=== PATIENT | male | born 1995 | race Caucasian/White ===

== ENCOUNTER 2018-04-26 12:52 | Emergency (ER) | payer OTHER, SELFPAY ==
[2018-04-26 12:58] VITALS: BP 120/75; PULSE 90; RESP 20; TEMP 37.2; O2SAT 99
--- NOTE | 2018-04-26 13:26 | ED.SKABFB ---
HPI - Skin/Abscess/Foreign Bdy <ORALIA Murillo - Last Filed: 04/26/18 21:56> General Chief complaint: Skin/Abscess/Foreign Body Stated complaint: Cyst, on top tailbone area Time Seen by Provider: 04/26/18 12:57 Source: patient Mode of arrival: ambulatory Limitations: no limitations History of Present Illness HPI narrative: 22-year-old healthy male that is a nonsmoker here for complaint of having abscess to his buttocks area. Has history of having pilonidal cyst and abscess in the past. He states over the past few days he has had pain into the area and today it started draining. No fevers or chills. No trauma to the area. He has not been able to see his primary care provider for this as of yet. He has a history of having a cyst surgically removed. He states that he recently just came back. No other concerns or complaints. He does report increased pain with sitting. Related Data Previous Rx's Medication Instructions Recorded clindamycin HCl 300 mg PO QID #28 cap 04/26/18 hydrocodone-acetaminophen [[place]] 1 tab PO Q6H PRN #6 tab 04/26/18 hydrocodone-acetaminophen 1 tab PO Q4-6H PRN #14 tab 04/29/18 levofloxacin [Levaquin] 500 mg PO DAILY #10 tab 04/29/18 metronidazole [Flagyl] 500 mg PO TID 10 Days #30 tab 04/29/18 Allergies Allergy/AdvReac Type Severity Reaction Status Date / Time Penicillins [PENICILLINS] Allergy Unknown RASH Verified 04/29/18 12:15 Review of Systems <ORALIA Murillo - Last Filed: 04/26/18 21:56> Constitutional Denies chills, Denies fever(s), Denies lethargy and Denies weakness Eyes Denies change in vision, Denies eye discharge, Denies irritation and Denies loss of vision ENT Ears, Nose, Mouth, and Throat: Denies change in voice, Denies neck pain and Denies sore throat Cardiovascular Denies chest pain, Denies irregular heart rhythm, Denies lightheadedness, Denies palpitations, Denies dyspnea, Denies dyspnea on exertion and Denies orthopnea Respiratory Denies cough, Denies dyspnea, Denies dyspnea on exertion and Denies wheezing Gastrointestinal Gastrointestinal: Denies abdominal pain, Denies change in bowel habits, Denies diarrhea, Denies nausea and Denies vomiting Genitourinary Denies hematuria, Denies flank pain, Denies urinary incontinence and Denies urinary urgency Musculoskeletal Denies neck pain Integumentary/Breasts Comments: Pilonidal abscess Neurologic Denies confusion, Denies loss of vision and Denies weakness Psychiatric Denies anxiety, Denies confusion, Denies depression, Denies homicidal ideation and Denies suicidal ideation Endocrine Denies palpitations Hematologic/Lymphatic Denies easy bruising Allergic/Immunologic Denies wheezing PFSH <ORALIA Murillo - Last Filed: 04/26/18 21:56> Social History Smoking Status: Never smoker Exam <ORALIA Murillo - Last Filed: 04/26/18 21:56> Initial Vital Signs Initial Vital Signs: Vital Signs Temperature 98.9 F 04/26/18 12:58 Pulse Rate 90 04/26/18 12:58 Respiratory Rate 20 04/26/18 12:58 Blood Pressure 120/75 04/26/18 12:58 Pulse Oximetry 99 04/26/18 12:58 Const General: cooperative and well developed Nutritional Appearance: well nourished Orientation: alert, awake, oriented x3 and not confused [facility] Mouth: oral mucosae normal and mucous membranes abnormal Eyes Conjunctivae: conjunctivae normal Sclera: sclerae normal Pupils: PERRL EOM: EOM intact bilaterally Resp Effort & Inspection: normal respiratory effort, able to speak in complete sentences, no respiratory distress and no use of accessory muscles Auscultation: clear to auscultation bilaterally, no rales, no rhonchi and no wheezes Cardio Rate: regular rate Rhythm: regular rhythm Heart Sounds: no click, no gallops, no murmurs and no rubs Pulses: normal peripheral pulses Skin General: no rashes or lesions noted, No jaundice and No petechiae Other: Fluctuance and induration to superior cleft of the buttocks it is draining purulent drainage. Slight amount of erythema to the area. Neuro General: alert, oriented x3, gait normal and no focal motor deficits Speech: speech normal <Maya Grigsby DO - Last Filed: 04/30/18 07:09> Initial Vital Signs Initial Vital Signs: Vital Signs Temperature 98.9 F 04/26/18 12:58 Pulse Rate 90 04/26/18 12:58 Respiratory Rate 20 04/26/18 12:58 Blood Pressure 120/75 04/26/18 12:58 Pulse Oximetry 99 04/26/18 12:58 Course <ORALIA Murillo - Last Filed: 04/26/18 21:56> Orders Ordered: Discontinued Medications Hydrocodone Bitart/Acetaminophen ([place] 5/325) 1 tab PO NOW ONE Stop: 04/26/18 14:00 Last Admin: 04/26/18 14:39 Dose: 1 tab Vital Signs - 8 hr 04/26/18 15:50 Temperature 98.4 F Pulse Rate 74 Respiratory Rate 18 Blood Pressure 115/64 Pulse Oximetry 98 <Maya Grigsby DO - Last Filed: 04/30/18 07:09> Orders Ordered: Discontinued Medications Hydrocodone Bitart/Acetaminophen ([place] 5/325) 1 tab PO NOW ONE Stop: 04/26/18 14:00 Last Admin: 04/26/18 14:39 Dose: 1 tab Vital Signs - 8 hr 04/26/18 15:50 Temperature 98.4 F Pulse Rate 74 Respiratory Rate 18 Blood Pressure 115/64 Pulse Oximetry 98 MDM - Skin/Abscess/Foreign Bdy <ORALIA Murillo - Last Filed: 04/26/18 21:56> MDM Narrative Medical decision making narrative: Pilonidal abscess that is draining. Was able to express good amount of purulent drainage from the wound. Wound is dressed with gauze. 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 He is covered with clindamycin. Follow up with primary care provider in the next couple days for re-evaluation and surgery referral. He is also given number to surgery here for another resource. [id number] ibuprofen as needed for any discomfort. Small amount of [place] is prescribed for breakthrough pain. Return emergency room for any worsening symptoms. Wound culture was obtained and is pending. Discharge Plan Departure Patient Disposition: Home Clinical Impression: Pilonidal abscess Discharge Date/Time: 04/26/18 15:00 Interventions: ED Discharge Assessment Last Done: 04/26/18 15:50 Instructions: DI for Pilonidal Cyst Drainage and Removal Activity Restrictions/Additional Instructions: Pilonidal abscess was further drained here in the emergency room. Use [id number] ibuprofen as needed for any discomfort. Small amount of [place] is prescribed for breakthrough pain. Her placed on antibiotic use as directed. Follow up with her primary care provider in the next couple days for re-evaluation and referral to surgery. Surgery may also be contacted at number provided below for further resources. For any worsening symptoms return to the emergency room. Prescriptions: New clindamycin HCl 300 mg capsule 300 mg PO QID Qty: 28 RF: 0 hydrocodone-acetaminophen [[place]] 5-325 mg tablet 1 tab PO Q6H PRN (Reason: pain) Qty: 6 RF: 0 No Action hydrocodone-acetaminophen 5-325 mg tablet 1 tab PO Q4-6H PRN (Reason: pain) Qty: 14 RF: 0 metronidazole [Flagyl] 500 mg tablet 500 mg PO TID 10 Days Qty: 30 RF: 0 levofloxacin [Levaquin] 500 mg tablet 500 mg PO DAILY Qty: 10 RF: 0 Referrals: [facility] [Provider Group] Dallin Neff [Primary Care Provider] - <Maya Grigsby DO - Last Filed: 04/30/18 07:09> Cosign ED Attending Cosignature Attestation: I was immediately available in the department for consultation. This documentation has been reviewed and I agree with assessment and plan. Supervised by Maya Grigsby DO
--- NOTE | 2018-04-26 14:11 | ED_ITS ---
HPI - Skin/Abscess/Foreign Bdy <ORALIA Murillo - Last Filed: 04/26/18 21:56> General Chief complaint: Skin/Abscess/Foreign Body Stated complaint: Cyst, on top tailbone area Time Seen by Provider: 04/26/18 12:57 Source: patient Mode of arrival: ambulatory Limitations: no limitations History of Present Illness HPI narrative: 22-year-old healthy male that is a nonsmoker here for complaint of having abscess to his buttocks area. Has history of having pilonidal cyst and abscess in the past. He states over the past few days he has had pain into the area and today it started draining. No fevers or chills. No trauma to the area. He has not been able to see his primary care provider for this as of yet. He has a history of having a cyst surgically removed. He states that he recently just came back. No other concerns or complaints. He does report increased pain with sitting. Related Data Previous Rx's Medication Instructions Recorded clindamycin HCl 300 mg PO QID #28 cap 04/26/18 hydrocodone-acetaminophen [[place]] 1 tab PO Q6H PRN #6 tab 04/26/18 hydrocodone-acetaminophen 1 tab PO Q4-6H PRN #14 tab 04/29/18 levofloxacin [Levaquin] 500 mg PO DAILY #10 tab 04/29/18 metronidazole [Flagyl] 500 mg PO TID 10 Days #30 tab 04/29/18 Allergies Allergy/AdvReac Type Severity Reaction Status Date / Time Penicillins [PENICILLINS] Allergy Unknown RASH Verified 04/29/18 12:15 Review of Systems <ORALIA Murillo - Last Filed: 04/26/18 21:56> Constitutional Denies chills, Denies fever(s), Denies lethargy and Denies weakness Eyes Denies change in vision, Denies eye discharge, Denies irritation and Denies loss of vision ENT Ears, Nose, Mouth, and Throat: Denies change in voice, Denies neck pain and Denies sore throat Cardiovascular Denies chest pain, Denies irregular heart rhythm, Denies lightheadedness, Denies palpitations, Denies dyspnea, Denies dyspnea on exertion and Denies orthopnea Respiratory Denies cough, Denies dyspnea, Denies dyspnea on exertion and Denies wheezing Gastrointestinal Gastrointestinal: Denies abdominal pain, Denies change in bowel habits, Denies diarrhea, Denies nausea and Denies vomiting Genitourinary Denies hematuria, Denies flank pain, Denies urinary incontinence and Denies urinary urgency Musculoskeletal Denies neck pain Integumentary/Breasts Comments: Pilonidal abscess Neurologic Denies confusion, Denies loss of vision and Denies weakness Psychiatric Denies anxiety, Denies confusion, Denies depression, Denies homicidal ideation and Denies suicidal ideation Endocrine Denies palpitations Hematologic/Lymphatic Denies easy bruising Allergic/Immunologic Denies wheezing PFSH <ORALIA Murillo - Last Filed: 04/26/18 21:56> Social History Smoking Status: Never smoker Exam <ORALIA Murillo - Last Filed: 04/26/18 21:56> Initial Vital Signs Initial Vital Signs: Vital Signs Temperature 98.9 F 04/26/18 12:58 Pulse Rate 90 04/26/18 12:58 Respiratory Rate 20 04/26/18 12:58 Blood Pressure 120/75 04/26/18 12:58 Pulse Oximetry 99 04/26/18 12:58 Const General: cooperative and well developed Nutritional Appearance: well nourished Orientation: alert, awake, oriented x3 and not confused [facility] Mouth: oral mucosae normal and mucous membranes abnormal Eyes Conjunctivae: conjunctivae normal Sclera: sclerae normal Pupils: PERRL EOM: EOM intact bilaterally Resp Effort & Inspection: normal respiratory effort, able to speak in complete sentences, no respiratory distress and no use of accessory muscles Auscultation: clear to auscultation bilaterally, no rales, no rhonchi and no wheezes Cardio Rate: regular rate Rhythm: regular rhythm Heart Sounds: no click, no gallops, no murmurs and no rubs Pulses: normal peripheral pulses Skin General: no rashes or lesions noted, No jaundice and No petechiae Other: Fluctuance and induration to superior cleft of the buttocks it is draining purulent drainage. Slight amount of erythema to the area. Neuro General: alert, oriented x3, gait normal and no focal motor deficits Speech: speech normal <Maya Grigsby DO - Last Filed: 04/30/18 07:09> Initial Vital Signs Initial Vital Signs: Vital Signs Temperature 98.9 F 04/26/18 12:58 Pulse Rate 90 04/26/18 12:58 Respiratory Rate 20 04/26/18 12:58 Blood Pressure 120/75 04/26/18 12:58 Pulse Oximetry 99 04/26/18 12:58 Course <ORALIA Murillo - Last Filed: 04/26/18 21:56> Orders Ordered: Discontinued Medications Hydrocodone Bitart/Acetaminophen ([place] 5/325) 1 tab PO NOW ONE Stop: 04/26/18 14:00 Last Admin: 04/26/18 14:39 Dose: 1 tab Vital Signs - 8 hr 04/26/18 15:50 Temperature 98.4 F Pulse Rate 74 Respiratory Rate 18 Blood Pressure 115/64 Pulse Oximetry 98 <Maya Grigsby DO - Last Filed: 04/30/18 07:09> Orders Ordered: Discontinued Medications Hydrocodone Bitart/Acetaminophen ([place] 5/325) 1 tab PO NOW ONE Stop: 04/26/18 14:00 Last Admin: 04/26/18 14:39 Dose: 1 tab Vital Signs - 8 hr 04/26/18 15:50 Temperature 98.4 F Pulse Rate 74 Respiratory Rate 18 Blood Pressure 115/64 Pulse Oximetry 98 MDM - Skin/Abscess/Foreign Bdy <ORALIA Murillo - Last Filed: 04/26/18 21:56> MDM Narrative Medical decision making narrative: Pilonidal abscess that is draining. Was able to express good amount of purulent drainage from the wound. Wound is dressed with gauze. 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 He is covered with clindamycin. Follow up with primary care provider in the next couple days for re-evaluation and surgery referral. He is also given number to surgery here for another resource. [id number] ibuprofen as needed for any discomfort. Small amount of [place] is prescribed for breakthrough pain. Return emergency room for any worsening symptoms. Wound culture was obtained and is pending. Discharge Plan Departure Patient Disposition: Home Clinical Impression: Pilonidal abscess Discharge Date/Time: 04/26/18 15:00 Interventions: ED Discharge Assessment Last Done: 04/26/18 15:50 Instructions: DI for Pilonidal Cyst Drainage and Removal Activity Restrictions/Additional Instructions: Pilonidal abscess was further drained here in the emergency room. Use [id number] ibuprofen as needed for any discomfort. Small amount of [place] is prescribed for breakthrough pain. Her placed on antibiotic use as directed. Follow up with her primary care provider in the next couple days for re- evaluation and referral to surgery. Surgery may also be contacted at number provided below for further resources. For any worsening symptoms return to the emergency room. Prescriptions: New clindamycin HCl 300 mg capsule 300 mg PO QID Qty: 28 RF: 0 hydrocodone-acetaminophen [[place]] 5-325 mg tablet 1 tab PO Q6H PRN (Reason: pain) Qty: 6 RF: 0 No Action hydrocodone-acetaminophen 5-325 mg tablet 1 tab PO Q4-6H PRN (Reason: pain) Qty: 14 RF: 0 metronidazole [Flagyl] 500 mg tablet 500 mg PO TID 10 Days Qty: 30 RF: 0 levofloxacin [Levaquin] 500 mg tablet 500 mg PO DAILY Qty: 10 RF: 0 Referrals: [facility] [Provider Group] Dallin Neff [Primary Care Provider] - <Maya Grigsby DO - Last Filed: 04/30/18 07:09> Cosign ED Attending Cosignature Attestation: I was immediately available in the department for consultation. This documentation has been reviewed and I agree with assessment and plan. Supervised by Maya Grigsby DO
[2018-04-26] MEDS: HYDROCODONE/ACET 5/325 TABLET 1 TAB PO (14:39)
[2018-04-26 15:50] VITALS: BP 115/64; PULSE 74; RESP 18; TEMP 36.9; O2SAT 98
== END 2018-04-26 15:00 | disposition home or self-care (01) ==
PROVIDERS: Emergency Provider Nurse Practitioner Family; PCP Student in an Organized Health Care Education/Training Program
DX: L05.01 Pilonidal cyst with abscess (principal)
CPT/HCPCS: 87070; 87075; 87205; 99282; 99283

== ENCOUNTER 2018-04-29 11:57 | Emergency (ER) | payer OTHER, SELFPAY ==
[2018-04-29 12:16] VITALS: BP 120/80; PULSE 87; RESP 16; TEMP 37.2; BMI 24.1
[2018-04-29 16:03] VITALS: BP 127/77; PULSE 67; RESP 16; O2SAT 100
--- NOTE | 2018-04-29 16:03 | PC.NURSE ---
pt c/o returning buttock cyst. back from possible surgical procedure, or drainage of area.
--- NOTE | 2018-05-06 01:23 | ED.SKABFB ---
HPI - Skin/Abscess/Foreign Bdy General Chief complaint: Skin/Abscess/Foreign Body Stated complaint: polynidal cyst Time Seen by Provider: 04/29/18 12:59 Source: patient Mode of arrival: ambulatory History of Present Illness HPI narrative: A 22-year-old male nonsmoker otherwise healthy a presents to the emergency department with his significant other and a chief complaint of recurrence, if not worsening of a known pilonidal cyst. He denies any systemic findings such is fever, chills nor nausea or vomiting. He was seen recently had an attempt at drainage and was placed on antibiotics and encouraged to follow up with his [facility] doctors. He was encouraged to return to our emergency department a small for evaluation and possible surgical consultation. He denies any painful bowel movements. He has had some spontaneous drainage of but states that was the swelling and redness is worse and now includes portions of his medial right buttock MD complaint: abscess/boil Tetanus up to date: yes Location: buttocks Severity: moderate Quality: burning Pain Consistency: constant Context: none Treatments prior to arrival: attempted to drain pus at home and antibiotic Related Data Previous Rx's Medication Instructions Recorded clindamycin HCl 300 mg PO QID #28 cap 04/26/18 hydrocodone-acetaminophen [[place]] 1 tab PO Q6H PRN #6 tab 04/26/18 hydrocodone-acetaminophen 1 tab PO Q4-6H PRN #14 tab 04/29/18 levofloxacin [Levaquin] 500 mg PO DAILY #10 tab 04/29/18 metronidazole [Flagyl] 500 mg PO TID 10 Days #30 tab 04/29/18 Allergies Allergy/AdvReac Type Severity Reaction Status Date / Time Penicillins [PENICILLINS] Allergy Unknown RASH Verified 04/29/18 12:15 Review of Systems Constitutional Denies chills, Denies fever(s), Denies lethargy and Denies weakness Eyes Denies change in vision, Denies eye discharge, Denies irritation and Denies loss of vision ENT Ears, Nose, Mouth, and Throat: Denies change in voice, Denies neck pain and Denies sore throat Cardiovascular Denies chest pain, Denies irregular heart rhythm, Denies lightheadedness, Denies palpitations, Denies dyspnea, Denies dyspnea on exertion and Denies orthopnea Respiratory Denies cough, Denies dyspnea, Denies dyspnea on exertion and Denies wheezing Gastrointestinal Gastrointestinal: Denies abdominal pain, Denies change in bowel habits, Denies diarrhea, Denies nausea and Denies vomiting Genitourinary Denies hematuria, Denies flank pain, Denies urinary incontinence and Denies urinary urgency Musculoskeletal Denies neck pain Integumentary/Breasts Denies pruritus, Reports erythema, Denies rash, Reports skin pain, Reports skin swelling and Reports wounds Neurologic Denies confusion, Denies loss of vision and Denies weakness Psychiatric Denies anxiety, Denies confusion, Denies depression, Denies homicidal ideation and Denies suicidal ideation Endocrine Denies palpitations Hematologic/Lymphatic Denies easy bruising Allergic/Immunologic Denies wheezing PFSH Social History Smoking Status: Never smoker Social History Smoking Status: Never smoker Exam Narrative Exam Narrative: GEN: AOx3 and in mild distress EYES: Pupils are equal, round, and reactive to light and accommodation. Extraoccular muscles are intact bilaterally. There is no subconjunctival hemorrhage or exudate. CHEST: Lungs are clear to auscultation bilaterally and free of wheezes, rales, or rhonchi. Heart rate is regular rhythm, there are no murmurs, clicks, rubs, or gallops. There is no chest wall tenderness. ABD: Abdomen is soft and nontender. There is no guarding or rebound. Bowel sounds are normal in all 4 quadrants. There is no mass or organomegaly. EXT: Full painless ROM of all extremities with no loss of sensation or strength. SKIN: Fluctuation, redness, induration and tenderness in the pilonidal region and perhaps 2-3 cm of induration on left buttock medially. There is minimal spontaneous drainage but will require scalpel for more appropriate drainage Warm, pink, and dry. No erythema or rash Initial Vital Signs Initial Vital Signs: Vital Signs Temperature 98.9 F 04/29/18 12:16 Pulse Rate 87 04/29/18 12:16 Respiratory Rate 16 04/29/18 12:16 Blood Pressure 120/80 04/29/18 12:16 Procedures Abscess I/D Site: other Local Anesthetic: lidocaine 1% and with epi Technique: incised with #11 blade Amount of fluid expressed (mL): 5 Irrigation: No Packing used?: none Complications: pain and bleeding Course Consultations Consultation #1: Patient seen and evaluated in the triage room by on-call surgeon, Dr. Bustillo, whom recommends incision and drainage by myself, a slight change in antibiotics and follow-up with her office on Thursday Discharge Plan Departure Patient Disposition: Home Clinical Impression: Pilonidal abscess Discharge Date/Time: 04/29/18 16:03 Interventions: ED Discharge Assessment Last Done: 04/29/18 16:03 Instructions: Pilonidal Cyst Activity Restrictions/Additional Instructions: *You have been diagnosed with [ pilonidal abscess ] *What to do: *Take medications as directed : Stop taking the clindamycin and please begin the new antibiotics I have written for you today. *Follow up with Dr. Bustillo on Thursday, her office will call you. Please to not eat or drink anything after midnight on Thursday night as her plan is to take you to the OR on thursday. *Return to ER if you should have any new, worsening or concerning symptoms Prescriptions: New hydrocodone-acetaminophen 5-325 mg tablet 1 tab PO Q4-6H PRN (Reason: pain) Qty: 14 RF: 0 metronidazole [Flagyl] 500 mg tablet 500 mg PO TID 10 Days Qty: 30 RF: 0 levofloxacin [Levaquin] 500 mg tablet 500 mg PO DAILY Qty: 10 RF: 0 No Action clindamycin HCl 300 mg capsule 300 mg PO QID Qty: 28 RF: 0 hydrocodone-acetaminophen [[place]] 5-325 mg tablet 1 tab PO Q6H PRN (Reason: pain) Qty: 6 RF: 0 Referrals: Alicia Bustillo MD [Physician] - Stand Alone Forms: Work Release Note
== END 2018-04-29 16:03 | disposition home or self-care (01) ==
PROVIDERS: Emergency Provider Emergency Medicine; PCP Student in an Organized Health Care Education/Training Program
DX: L05.01 Pilonidal cyst with abscess (principal)
CPT/HCPCS: 10060; 99282